=== PATIENT | female | born 2000 ===

== ENCOUNTER 2018-06-14 02:07 | Emergency (ER) | payer BC | END 2018-06-14 02:50 | disposition home or self-care (01) | LOC: ERS 02:07 | DX: S39.012A Strain of muscle, fascia and tendon of lower back, initial encounter (principal); F32.9 Major depressive disorder, single episode, unspecified; Z79.899 Other long term (current) drug therapy; X50.0XXA Overexertion from strenuous movement or load, initial encounter | CPT/HCPCS: 99283 ==